=== PATIENT | male | born 1985 | race Caucasian/White ===

== ENCOUNTER 2019-12-09 17:39 | Emergency (ER) | payer SELFPAY ==
[~2019-12-09] VITALS: Ht 175.3 cm; Wt 71.2 kg
[2019-12-09 17:51] VITALS: BP 159/91
--- NOTE | 2019-12-09 18:10 | NUR ---
SEEN AND EXAMINED BY .
[2019-12-09] MEDS ORDERED: IBUPROFEN 600 MG TABLET PO ONE ×2 (18:11→18:30)
--- NOTE | 2019-12-09 18:13 | NUR ---
ENVIRONMENTAL ENGINEERING INTERN AT BEDSIDE FOR XRAY.
--- NOTE | 2019-12-09 18:40 | NUR ---
KAR WRAP APPLIED L ANKLE.
--- NOTE | 2019-12-09 18:43 | NUR ---
Patient discharged to home in stable condition. Written and verbal after care instructions given. Patient verbalizes understanding of instruction.
== END 2019-12-09 18:44 | disposition home or self-care (01) ==
LOC: ER 17:42
DX: S90.31XA Contusion of right foot, initial encounter (principal); Z98.890 Other specified postprocedural states; Z88.1 Allergy status to other antibiotic agents; W22.8XXA Striking against or struck by other objects, initial encounter; Y93.89 Activity, other specified; Y92.89 Other specified places as the place of occurrence of the external cause; Y99.8 Other external cause status
CPT/HCPCS: 73630-TC